=== PATIENT | female | born 1945 | race Caucasian/White ===

== ENCOUNTER 2018-08-26 18:48 | Emergency (ER) | payer OTHER, BC ==
[2018-08-26 19:07] VITALS: BP 145/64; PULSE 49; TEMP 98.2; BMI 28.3
[2018-08-26] MEDS ORDERED: TETRACAINE 0.5% OPHTH SOLN 2 ML BOTTLE ONE (19:21)
[2018-08-26] MEDS ORDERED: FLUORESCEIN NA 1 EA STRIP ONE (19:22)
--- NOTE | 2018-08-26 19:27 | PDOC ---
History of Present Illness - General History Source: Patient, Family Exam Limitations: No Limitations - History of Present Illness Initial Comments: 08/26/18 19:29 The patient is a 73 year old female with significant past medical history of HLD and GERD, who presents today complaining of right eye redness that began today. The patient explains that she accidentally poked herself in the eye with her glasses. She denies eye pain. Denies any changes in vision. Denies dizziness , lightheadedness. Denies headache Allergies: NKA <Tamara Horvath - Last Filed: 08/26/18 19:32> <Elliot Huerta - Last Filed: 08/27/18 06:21> - General Chief Complaint: Eye Problem Stated Complaint: RT EYE REDNESS Time Seen by Provider: 08/26/18 19:13 Past History <Tamara Horvath - Last Filed: 08/26/18 19:32> - Past Medical History COPD: No Hypercholesterolemia: Yes - Suicide/Smoking/Psychosocial Hx Smoking Status: No Smoking History: Never smoked Have you smoked in the past 12 months: No Number of Cigarettes Smoked Daily: 0 Information on smoking cessation initiated: No Hx Alcohol Use: No Drug/Substance Use Hx: No <Elliot Huerta - Last Filed: 08/27/18 06:21> - Past Medical History Allergies/Adverse Reactions: Allergies Allergy/AdvReac Type Severity Reaction Status Date / Time No Known Allergies Allergy Verified 08/26/18 18:49 Home Medications: Ambulatory Orders Atorvastatin Ca [Lipitor] 10 mg PO HS 08/26/18 Ergocalciferol (Vitamin D2) [Vitamin D2] 1.25 unit PO ASDIR 08/26/18 Erythromycin 0.5% Eye Ointment [Erythromycin 0.5% Eye Ointment -] 1 applic OD QID #1 tube 08/26/18 Omeprazole 10 mg PO DAILY 08/26/18 Review of Systems - Review of Systems Able to Perform ROS?: Yes Comments:: 08/26/18 19:30 A complete review of 10 out of 10 review of systems is taken and is negative apart from what is previously mentioned below and in the HPI. <Tamara Horvath - Last Filed: 08/26/18 19:32> *Physical Exam - Vital Signs Last Vital Signs Temp Pulse Resp BP Pulse Ox 98.2 F 49 L 20 145/64 97 08/26/18 18:49 08/26/18 18:49 08/26/18 18:49 08/26/18 18:49 08/26/18 18:49 - Physical Exam Comments: 08/26/18 19:30 Vitals: Triage Vital signs reviewed General Appearance: no acute distress, well nourished well developed Head: Atraumatic Eyes: +Right eye Subconjunctival hemorrhage. extraocular movement intact Skin: Warm and dry, no rashes or lesions, no rash, no petechiae Neuro: AOX3; gait normal Psych: Normal mood, normal affect <Tamara Horvath - Last Filed: 08/26/18 19:32> - Vital Signs Last Vital Signs Temp Pulse Resp BP Pulse Ox 98.2 F 49 L 20 145/64 97 08/26/18 18:49 08/26/18 18:49 08/26/18 18:49 08/26/18 18:49 08/26/18 18:49 <Elliot Huerta - Last Filed: 08/27/18 06:21> Medical Decision Making - Medical Decision Making 08/27/18 06:21 Some conjunctival hemorrhage status post poking her eye with the corner of her eyeglass arm. On fluorescein exam there is very small punctate uptake over the cornea given this finding we'll treat with course of erythromycin ointment Patient will follow up with her roll finisher this week. Findings, the need for follow-up and strict return instructions discussed with patient. <Elliot Huerta - Last Filed: 08/27/18 06:21> *DC/Admit/Observation/Transfer - Attestations Scribe Attestion: 08/26/18 19:30 Documentation prepared by BLAS Menard, acting as medical office worker for Elliot Huerta MD <Tamara Horvath - Last Filed: 08/26/18 19:32> - Discharge Dispostion Decision to Admit order: No <Elliot Huerta - Last Filed: 08/27/18 06:21> Diagnosis at time of Disposition: Conjunctival hemorrhage of right eye Corneal abrasion Qualifiers: Encounter type: initial encounter Laterality: right Qualified Code(s): S05.01XA - Injury of conjunctiva and corneal abrasion without foreign body, right eye, initial encounter - Discharge Dispostion Disposition: HOME Condition at time of disposition: Good - Prescriptions Prescriptions: Erythromycin 0.5% Eye Ointment [Erythromycin 0.5% Eye Ointment -] 1 applic OD QID #1 tube - Patient Instructions Printed Discharge Instructions: Corneal Abrasion, DI for Subconjunctival Hemorrhage Additional Instructions: Erythromycin ointment 4 times a day to affected eye. Follow-up with your roll finisher within 1 week. Return to emergency department for any severe eye pain change in vision Poss or for any concerns.
== END 2018-08-26 19:37 | disposition home or self-care (01) ==
LOC: FER 18:48
DX: H11.31 Conjunctival hemorrhage, right eye (principal); S05.01XA Injury of conjunctiva and corneal abrasion without foreign body, right eye, initial encounter; W22.8XXA Striking against or struck by other objects, initial encounter; Y93.9 Activity, unspecified; Y92.9 Unspecified place or not applicable; E78.5 Hyperlipidemia, unspecified; K21.9 Gastro-esophageal reflux disease without esophagitis
CPT/HCPCS: 99282-25

== ENCOUNTER 2021-01-02 09:45 | Inpatient (IN) | payer OTHER, BC ==
[2021-01-02 09:57] VITALS: BMI 29.5
[2021-01-02] MEDS ORDERED: METOCLOPRAMIDE HCL INJECTION 10 MG/2 ML VIAL IVPUSH ONE (10:20)
[2021-01-02] MEDS ORDERED: MECLIZINE HCL 12.5 MG TABLET PO ONE (10:20)
[2021-01-02 10:21] LABS: BASO % 1.1 % (0-2.0); EOS % 0.6 % (0-4.5); HEMATOCRIT 37.9 % (32.4-45.2); HEMOGLOBIN 12.4 GM/dl (10.7-15.3); MCHC 32.9 g/dl (32.0-36.0); MEAN CELL VOLUME 85.2 fl (80-96); MONO % 7.8 % (3.8-10.2); NEUT % 67.5 % (42.8-82.8); PLATELET COUNT 225 10^3/uL (134-434); RBC 4.45 M/mm3 (3.60-5.2); RDW 13.2 % (11.6-15.6); WHITE BLOOD COUNT 6.6 K/mm3 (4.0-10.8)
[2021-01-02] MEDS ORDERED: MECLIZINE HCL 12.5 MG TABLET ONE (10:25)
[2021-01-02] MEDS ORDERED: METOCLOPRAMIDE HCL INJECTION 10 MG/2 ML VIAL ONE (10:25)
[2021-01-02 10:26] LABS: ACTIVATED PTT 28.9 SECONDS (25.2-36.5)
[2021-01-02 10:30] LABS: INR 0.97 (0.82-1.09); PROTHROMBIN TIME (PATIENT) 10.9 SEC (10.2-13.0)
[2021-01-02 10:31] LABS: ALK PHOS 52 U/L (45-117); ANION GAP 9 MMOL/L (8-16); BILIRUBIN,TOTAL 0.6 mg/dl (0.2-1); CHLORIDE 103 mmol/L (98-107); CO2 25 mmol/L (21-32); CREATININE 0.6 mg/dl (0.55-1.3); GLUCOSE,RANDOM 126 mg/dl (74-106); MAGNESIUM 2.1 mg/dL (1.8-2.4); SGOT/AST 20 U/L (15-37); SGPT/ALT 15 U/L (13-61); SODIUM 137 mmol/L (136-145); TOT PROT 6.8 g/dl (6.4-8.2)
[2021-01-02] MEDS ORDERED: LACTATED RINGERS SOLUTION 1000 ML INFUS.BAG IV ONE (11:55)
[2021-01-02] MEDS ORDERED: ASPIRIN 81 MG CHEWABLE TABLETS PO ONE (14:01)
[2021-01-02] MEDS ORDERED: ASPIRIN 81 MG CHEWABLE TABLETS ONE (14:14)
[2021-01-02] MEDS ORDERED: MECLIZINE HCL 12.5 MG TABLET PO PRN (15:31)
[2021-01-02] MEDS: HEPARIN NA (PORCINE) 5,000 UNITS/ML 1ML VIAL SQ SCH (21:35)
[2021-01-02] MEDS: PANTOPRAZOLE 40 MG TABLET PO SCH (21:42)
[2021-01-02] MEDS ORDERED: ATORVASTATIN CA 10 MG TABLET (FP) PO SCH (22:00)
[2021-01-03 08:10] LABS: BASO % 0.8 % (0-2.0); EOS % 1.1 % (0-4.5); HEMATOCRIT 34.9 % (32.4-45.2); HEMOGLOBIN 11.5 GM/dl (10.7-15.3); LYMPH % 26.3 % (8-40); MCH 27.9 pg (25.7-33.7); MCHC 32.9 g/dl (32.0-36.0); MEAN CELL VOLUME 84.9 fl (80-96); MEAN PLT VOLUME 9.1 fl (7.5-11.1); MONO % 9.2 % (3.8-10.2); NEUT % 62.6 % (42.8-82.8); PLATELET COUNT 209 10^3/uL (134-434); RBC 4.11 M/mm3 (3.60-5.2); RDW 13.5 % (11.6-15.6); WHITE BLOOD COUNT 6.4 K/mm3 (4.0-10.8)
[2021-01-03 08:23] LABS: MAGNESIUM 2.1 mg/dL (1.8-2.4)
[2021-01-03 10:10] VITALS: BP 142/57; PULSE 46; TEMP 98.4
[2021-01-03] MEDS: PANTOPRAZOLE 40 MG TABLET PO SCH (10:14)
[2021-01-03] MEDS: HEPARIN NA (PORCINE) 5,000 UNITS/ML 1ML VIAL SQ SCH (10:14)
== END 2021-01-03 11:00 | disposition home or self-care (01) | DRG 149 ==
LOC: FER 09:45 → FM/S 14:03
PROVIDERS: ADMIT Internal Medicine; ATTEND Nurse Practitioner Family
DX: H81.03 Meniere's disease, bilateral (principal); K21.9 Gastro-esophageal reflux disease without esophagitis; E78.5 Hyperlipidemia, unspecified; R00.1 Bradycardia, unspecified
CPT/HCPCS: 36415; 70450-TC; 71045-TC-FY; 80053; 82550; 83735; 84443; 84484; 85025; 85027; 85610; 85730; 93005; 99285-25; C9803; J1644; U0003; U0005

== ENCOUNTER → 2021-06-29 | Day surgery (SDC) | payer OTHER, BC ==
[2021-06-23 15:53] VITALS: BMI 27.3
[~2021-06-29] MED LIST: ACETAMINOPHEN 1000 MG/100 ML BAG IVPB ONE; BUPIVACAINE HCL 50 ML ONE; MIDAZOLAM HCL 2 MG/2 ML SINGLE DOSE VIAL ONE; ONDANSETRON 4 MG/2 ML VIAL ONE; PROPOFOL 20 ML ONE; SODIUM CHLORIDE 0.9% P/F 10 ML VIAL IJ ONE; SUCCINYLCHOLINE CHLORIDE 200 MG/10 ML SYRINGE ONE; oxyCODONE HCL 5 MG TABLET PO PRN
[2021-06-29 11:05] VITALS: TEMP 96.8
[2021-06-29 11:07] VITALS: BP 120/62; PULSE 56
== END | disposition home or self-care (01) ==
LOC: FASU 05:57
PROVIDERS: ATTEND Orthopaedic Surgery
PROC: 0SBC4ZZ Excision of Right Knee Joint, Percutaneous Endoscopic Approach (ICD-10-PCS; principal; 2021-06-29 08:24)
DX: M23.91 Unspecified internal derangement of right knee (principal)
CPT/HCPCS: 94760; J0131

== ENCOUNTER 2022-09-20 04:06 | Day surgery (SDC) | payer OTHER, BC ==
[2022-09-16 13:01] VITALS: BMI 27.7
[2022-09-20] MEDS ORDERED: BUPIVACAINE HCL/PF 0.75% 10 ML VIAL ONE (07:31)
[2022-09-20] MEDS ORDERED: LIDOCAINE HCL/PF 1% SDV 5ML VIAL ONE (07:31)
[2022-09-20 12:25] VITALS: RESP 20; TEMP 97
[2022-09-20] MEDS ORDERED: LIDOCAINE HCL 1% PRESERVATIVE FREE - 30ML VIAL IJ ONE (13:20)
[2022-09-20] MEDS ORDERED: BUPIVACAINE HCL/PF 0.75% 10 ML VIAL NR ONE (13:23)
[2022-09-20] MEDS ORDERED: BUPIVACAINE HCL/PF 0.5% (5MG/ML) 10 ML VIAL IJ ONE (13:23)
[2022-09-20 13:47] VITALS: BP 132/63; PULSE 52
== END 2022-09-20 14:00 | disposition home or self-care (01) ==
LOC: JASU-SURG 04:06
PROVIDERS: ATTEND Pain Medicine Pain Medicine
PROC: 3E0T33Z Introduction of Anti-inflammatory into Peripheral Nerves and Plexi, Percutaneous Approach (ICD-10-PCS; 2022-09-20)
PROC: 3E0T3BZ Introduction of Anesthetic Agent into Peripheral Nerves and Plexi, Percutaneous Approach (ICD-10-PCS; principal; 2022-09-20 15:00)
DX: M47.816 Spondylosis without myelopathy or radiculopathy, lumbar region (principal)
CPT/HCPCS: 76000-TC-FY

== ENCOUNTER 2022-10-25 03:58 | Day surgery (SDC) | payer OTHER, BC ==
[2022-10-21 15:21] VITALS: BMI 27.7
[2022-10-25] MEDS ORDERED: LIDOCAINE HCL/PF 1% SDV 5ML VIAL ONE (07:41)
[2022-10-25] MEDS ORDERED: BUPIVACAINE HCL/PF 0.75% 10 ML VIAL ONE (07:41)
[2022-10-25] MEDS ORDERED: LIDOCAINE HCL 1% PRESERVATIVE FREE - 30ML VIAL IJ ONE ×2 (07:51→09:13)
[2022-10-25] MEDS ORDERED: BUPIVACAINE HCL/PF 0.75% 10 ML VIAL PNB ONE ×2 (07:52→09:13)
[2022-10-25 09:49] VITALS: RESP 18
[2022-10-25 10:14] VITALS: BP 147/75; PULSE 55; TEMP 97.7
[2022-10-25] MEDS ORDERED: ACETAMINOPHEN 500 MG TABLET (FP) PO PRN (12:35)
== END 2022-10-25 10:20 | disposition home or self-care (01) ==
LOC: JASU-SURG 03:58
PROVIDERS: ATTEND Pain Medicine Pain Medicine
PROC: 3E0T3BZ Introduction of Anesthetic Agent into Peripheral Nerves and Plexi, Percutaneous Approach (ICD-10-PCS; principal; 2022-10-25 08:45)
DX: M47.816 Spondylosis without myelopathy or radiculopathy, lumbar region (principal)
CPT/HCPCS: 76000-TC-FY

== ENCOUNTER 2023-01-06 04:02 | Day surgery (SDC) | payer OTHER, BC ==
[2023-01-05 11:02] VITALS: BMI 27.5
[~2023-01-06 04:02] MED LIST changes: -ACETAMINOPHEN 1000 MG/100 ML BAG IVPB ONE; -BUPIVACAINE HCL 50 ML ONE; +LIDOCAINE HCL 1% PRESERVATIVE FREE - 30ML VIAL IJ ONE; -MIDAZOLAM HCL 2 MG/2 ML SINGLE DOSE VIAL ONE; -ONDANSETRON 4 MG/2 ML VIAL ONE; -PROPOFOL 20 ML ONE; -SODIUM CHLORIDE 0.9% P/F 10 ML VIAL IJ ONE; -SUCCINYLCHOLINE CHLORIDE 200 MG/10 ML SYRINGE ONE; -oxyCODONE HCL 5 MG TABLET PO PRN
[2023-01-06 06:54] VITALS: RESP 18
[2023-01-06] MEDS ORDERED: LIDOCAINE HCL 1% PRESERVATIVE FREE - 30ML VIAL IJ ONE (09:08)
[2023-01-06 10:56] VITALS: BP 137/71; PULSE 57; TEMP 98.1
== END 2023-01-06 10:30 | disposition home or self-care (01) ==
LOC: JASU-SURG 04:02
PROVIDERS: ATTEND Pain Medicine Pain Medicine
PROC: 01HY3MZ Insertion of Neurostimulator Lead into Peripheral Nerve, Percutaneous Approach (ICD-10-PCS; principal; 2023-01-06 08:45)
DX: G89.4 Chronic pain syndrome (principal)
CPT/HCPCS: 64555; C1778; 76000-TC-FY

== ENCOUNTER 2023-01-27 05:27 | Day surgery (SDC) | payer OTHER, BC ==
[2023-01-26 09:16] VITALS: BMI 27.3
[2023-01-27 06:44] VITALS: RESP 16; TEMP 97.9
[2023-01-27] MEDS ORDERED: LIDOCAINE HCL/PF 2% SDV 5ML VIAL ONE (07:07)
[2023-01-27] MEDS ORDERED: BUPIVACAINE HCL/PF 0.25% (2.5MG/ML) 10 ML VIAL ONE (07:07)
[2023-01-27] MEDS ORDERED: TRIAMCINOLONE ACET 40MG/1ML VIAL ONE (07:08)
[2023-01-27] MEDS ORDERED: DEXAMETHASONE SOD PHOSPHATE 10 MG/1 ML VIAL ONE (07:09)
[2023-01-27] MEDS ORDERED: BUPIVACAINE HCL/PF 0.75% 10 ML VIAL ONE (07:09)
[2023-01-27] MEDS ORDERED: LIDOCAINE HCL/PF 1% SDV 5ML VIAL ONE (07:09)
[2023-01-27] MEDS ORDERED: BUPIVACAINE HCL/PF 0.5% (5MG/ML) 10 ML VIAL ONE (07:09)
[2023-01-27] MEDS ORDERED: ACETAMINOPHEN 500 MG TABLET (FP) PO PRN (07:23)
[2023-01-27] MEDS ORDERED: LIDOCAINE HCL 1% PRESERVATIVE FREE - 30ML VIAL IJ ONE ×2 (08:50)
[2023-01-27 09:24] VITALS: BP 144/54; PULSE 48
== END 2023-01-27 10:07 | disposition home or self-care (01) ==
LOC: JASU-SURG 05:27
PROVIDERS: ATTEND Pain Medicine Pain Medicine
PROC: 01HY3MZ Insertion of Neurostimulator Lead into Peripheral Nerve, Percutaneous Approach (ICD-10-PCS; principal; 2023-01-27 08:15)
DX: G89.4 Chronic pain syndrome (principal); M54.50 Low back pain, unspecified
CPT/HCPCS: 64555; C1778; 76000-TC-FY; J1100

== ENCOUNTER 2023-02-03 19:20 | Emergency (ER) | payer OTHER, BC ==
[2023-02-03] MEDS ORDERED: SODIUM CHLORIDE 1,000 ML IV ONE (19:22)
[2023-02-03] MEDS ORDERED: methylPREDNISolone NA SUCC 40 MG/1 ML VIAL IVPUSH ONE (19:22)
[2023-02-03] MEDS ORDERED: methylPREDNISolone NA SUCC 125 MG/2 ML VIAL ONE (19:31)
[2023-02-03] MEDS ORDERED: FAMOTIDINE 20 MG/50 ML IVPB 20 MG/50 ML MG IVPB ONE ×2 (19:32→19:33)
[2023-02-03 19:51] VITALS: BP 154/80; TEMP 97.8; BMI 27.3
[2023-02-03 21:56] VITALS: PULSE 52; RESP 17
[2023-02-03] MEDS ORDERED: AZITHROMYCIN 500 MG TABLET PO ONE (22:09)
[2023-02-03] MEDS ORDERED: AZITHROMYCIN 500 MG TABLET ONE (22:09)
== END 2023-02-03 22:15 | disposition home or self-care (01) ==
LOC: SUPCPDRO 19:20 → FER 19:20
PROC: 3E033GC Introduction of Other Therapeutic Substance into Peripheral Vein, Percutaneous Approach (ICD-10-PCS; principal; 2023-02-03)
PROC: 3E033GC Introduction of Other Therapeutic Substance into Peripheral Vein, Percutaneous Approach (ICD-10-PCS; 2023-02-03)
PROC: 3E033GC Introduction of Other Therapeutic Substance into Peripheral Vein, Percutaneous Approach (ICD-10-PCS; 2023-02-03)
PROC: 3E0337Z Introduction of Electrolytic and Water Balance Substance into Peripheral Vein, Percutaneous Approach (ICD-10-PCS; 2023-02-03)
DX: L29.9 Pruritus, unspecified (principal); T36.8X5A Adverse effect of other systemic antibiotics, initial encounter
CPT/HCPCS: 99284-25

== ENCOUNTER 2023-02-20 18:13 | Emergency (ER) | payer OTHER, BC ==
[2023-02-20 18:35] VITALS: BP 155/90; PULSE 45; RESP 18; TEMP 98.5; BMI 27.3
[2023-02-20] MEDS ORDERED: LIDOCAINE 5% TOPICAL PATCH TP ONE (18:50)
[2023-02-20] MEDS ORDERED: KETOROLAC TROMETHAMINE 30 MG/1 ML VIAL IM ONE (18:50)
[2023-02-20] MEDS ORDERED: KETOROLAC TROMETHAMINE 30 MG/1 ML VIAL ONE (19:29)
[2023-02-20] MEDS ORDERED: LIDOCAINE 5% TOPICAL PATCH ONE (19:29)
[2023-02-20] MEDS ORDERED: LIDOCAINE PATCH REMOVAL MC ONE (22:00)
== END 2023-02-20 20:11 | disposition home or self-care (01) ==
LOC: FER 18:13
PROC: 3E0233Z Introduction of Anti-inflammatory into Muscle, Percutaneous Approach (ICD-10-PCS; principal; 2023-02-20)
DX: M54.6 Pain in thoracic spine (principal); R06.7 Sneezing
CPT/HCPCS: 71046-TC-FY; 93005; 99284-25

== ENCOUNTER 2023-07-12 17:50 | Emergency (ER) | payer OTHER, BC ==
[2023-07-12 18:29] VITALS: BP 115/85; PULSE 60; RESP 18; TEMP 97.8; BMI 27.3
[2023-07-12 19:41] LABS: HEMATOCRIT 37.2 % (32.4-45.2); HEMOGLOBIN 12.3 G/dL (10.7-15.3); MCH 27.9 pg (25.7-33.7); MCHC 33.1 g/dl (32.0-36.0); MEAN CELL VOLUME 84.3 fl (80-96); MEAN PLT VOLUME 8.3 fl (7.5-11.1); PLATELET COUNT 219.6 10^3/uL (134-434); RBC 4.41 10^6/uL (3.60-5.2); RDW 14.4 % (11.6-15.6); WHITE BLOOD COUNT 9.3 10^3/uL (4.0-10.8)
[2023-07-12 19:59] LABS: ALBUMIN 4.5 g/dl (3.4-5.0); BILIRUBIN,TOTAL 0.4 mg/dl (0.2-1); CALCIUM 9.9 mg/dl (8.5-10.1); CREATININE 0.8 mg/dl (0.6-1.3); POTASSIUM 4.4 mmol/L (3.5-5.1); TOT PROT 7.3 g/dl (6.4-8.2)
== END 2023-07-12 20:19 | disposition home or self-care (01) ==
LOC: FER 17:50
DX: R00.2 Palpitations (principal)
CPT/HCPCS: 36415; 80053; 82550; 84484; 85027; 93005; 99284-25

== ENCOUNTER 2023-07-14 10:00 | Emergency (ER) | payer OTHER, BC ==
[2023-07-14 10:24] VITALS: BP 127/77; PULSE 51; RESP 18; TEMP 98.1; BMI 27.3
[2023-07-14] MEDS ORDERED: MAG HYDROX/AL HYDROX/SIMETH 30 ML UNIT-DOSE CUP ONE (10:24)
[2023-07-14] MEDS: MAG HYDROX/AL HYDROX/SIMETH 30 ML UNIT-DOSE CUP PO ONE (10:26)
[2023-07-14 10:51] LABS: INR 1.06 (0.83-1.09); PROTHROMBIN TIME (PATIENT) 12.3 SEC (9.7-13.0)
[2023-07-14 10:54] LABS: ACTIVATED PTT 31.5 SECONDS (25.2-36.5)
[2023-07-14] MEDS: ACETAMINOPHEN 1000 MG/100 ML BAG IVPB ONE (10:54)
[2023-07-14 10:57] LABS: HEMATOCRIT 36.9 % (32.4-45.2); HEMOGLOBIN 12.8 G/dL (10.7-15.3); MCH 29.3 pg (25.7-33.7); MCHC 34.6 g/dl (32.0-36.0); MEAN CELL VOLUME 84.7 fl (80-96); MEAN PLT VOLUME 8.8 fl (7.5-11.1); PLATELET COUNT 247.4 10^3/uL (134-434); RBC 4.36 10^6/uL (3.60-5.2); RDW 14.4 % (11.6-15.6); WHITE BLOOD COUNT 7.5 10^3/uL (4.0-10.8)
[2023-07-14 11:01] LABS: PLATELET ESTIMATE ADEQUATE
[2023-07-14 11:03] LABS: ALBUMIN 4.5 g/dl (3.4-5.0); BILIRUBIN,TOTAL 0.4 mg/dl (0.2-1); CALCIUM 9.8 mg/dl (8.5-10.1); CREATININE 0.7 mg/dl (0.6-1.3); MAGNESIUM 2.1 mg/dL (1.8-2.4); POTASSIUM 4.1 mmol/L (3.5-5.1); TOT PROT 7.3 g/dl (6.4-8.2)
== END 2023-07-14 13:30 | disposition home or self-care (01) ==
LOC: FER 10:00
PROC: 3E033NZ Introduction of Analgesics, Hypnotics, Sedatives into Peripheral Vein, Percutaneous Approach (ICD-10-PCS; principal; 2023-07-14)
DX: R10.31 Right lower quadrant pain (principal); R00.2 Palpitations; R10.32 Left lower quadrant pain
CPT/HCPCS: 36415; 74174-TC; 80053; 81003; 83605; 83690; 83735; 85025; 85610; 85730; 87086; 99285-25; J0131

== ENCOUNTER 2024-06-13 11:28 | Emergency (ER) | payer OTHER, BC ==
[2024-06-13 11:49] VITALS: BP 118/85; PULSE 58; RESP 19; TEMP 98.2; BMI 25.4
[2024-06-13] MEDS ORDERED: IBUPROFEN 400 MG TABLET (FP) PO ONE (12:37)
[2024-06-13] MEDS: IBUPROFEN 200 MG TABLET PO ONE (12:41)
== END 2024-06-13 12:45 | disposition home or self-care (01) ==
LOC: FER 11:28
DX: J10.1 Influenza due to other identified influenza virus with other respiratory manifestations (principal); B34.9 Viral infection, unspecified; R09.81 Nasal congestion; R05.9 Cough, unspecified; M79.10 Myalgia, unspecified site; R11.0 Nausea; Z20.822 Contact with and (suspected) exposure to COVID-19
CPT/HCPCS: 0241U-QW; 71046-TC-FY; 99284-25